=== PATIENT | male | born 1970 | race Caucasian/White ===

== ENCOUNTER 2017-02-10 02:15 | Observation (INO) | payer BC ==
[~2017-02-10] VITALS: Ht 180.3 cm; Wt 95.5 kg
[2017-02-10 03:01] LABS: EOSINOPHIL (%) 3.2 % (0-5); EOSINOPHIL COUNT 0.2 K/uL (0-0.3); HEMATOCRIT 46.7 % (38.0-50.0); IMMATURE GRANULOCYTE (%) 0.4 % (0.0-0.7); INSTRUMENT ABS NEUTROPHIL CT 2.8 K/uL; LYMPHOCYTE COUNT 1.5 K/uL (1.0-2.8); MCH 34.1 PG (29.0-34.0); MCHC 35.5 G/DL (30.0-36.0); MCV 95.9 FL (86-99); MEAN PLAT.VOLUME 9.7 uM^3 (9.0-12.4); MONOCYTE (%) 15.9 % (3-12); MONOCYTE COUNT 0.9 K/uL (0-0.8); NEUTROPHIL (%) 52.3 % (45-76); NEUTROPHIL COUNT 2.8 K/uL (1.8-6.4); PLATELET COUNT 184 K/uL (156-360); RBC DIS.WIDTH-CV 12.6 % (11.8-14.6); RBC DIS.WIDTH-SD 45.3 % (39-53); RED BLOOD COUNT 4.87 M/uL (4.00-5.50); WHITE BLOOD COUNT 5.3 K/uL (4.1-10.2)
[2017-02-10 03:15] LABS: CHLORIDE 102 mEq/L (99-109); POTASSIUM 3.8 mEq/L (3.7-5.4); SODIUM 139 mEq/L (136-147)
[2017-02-10 03:16] LABS: GLUCOSE 101 mg/dL (70-99)
[2017-02-10 03:18] LABS: ANION GAP 11 MEQ/L (2-14)
[2017-02-10 03:20] LABS: GFR ESTIMATE (CALCULATED) > 59 mL/min/
[2017-02-10 03:21] LABS: UREA NITROGEN (BUN) 12 mg/dL (9-23)
[2017-02-10 03:27] LABS: TROP-I INTERPRETATION NEGATIVE; TROPONIN-I < 0.01 ng/mL (0.0-0.30)
[2017-02-10 07:35] VITALS: BP 153/97
[2017-02-10 08:50] LABS: HDL CHOLESTEROL 46 MG/DL (Desirable>=40); LDL CHOLESTEROL 112 mg/dL (Desirable<100); NON-HDL CHOLESTEROL 134 mg/dL (Desirable<160); TOTAL CHOLESTEROL 180 mg/dL (Desirable<200); TRIGLYCERIDES 108 MG/DL (Normal: <150)
[2017-02-10 10:14] LABS: TROP-I INTERPRETATION NEGATIVE; TROPONIN-I < 0.01 ng/mL (0.0-0.30)
[2017-02-10] MEDS ORDERED: NICOTINE PATCH1 EAC1 TD (14:06)
[2017-02-10] MEDS ORDERED: LOPRESSOR25 MG PO (14:06)
[2017-02-10 15:29] LABS: TROP-I INTERPRETATION NEGATIVE; TROPONIN-I < 0.01 ng/mL (0.0-0.30)
== END 2017-02-10 15:53 | disposition home or self-care (01) ==
LOC: EME 02:15 → EDOF 04:47 → ENRESERV 04:48 → 5WEST 07:24
PROVIDERS: Emergency Medicine; Hospitalist; Nurse Practitioner Adult Health
DX: R07.9 Chest pain, unspecified (principal); F17.210 Nicotine dependence, cigarettes, uncomplicated; I10 Essential (primary) hypertension; K21.9 Gastro-esophageal reflux disease without esophagitis; K44.9 Diaphragmatic hernia without obstruction or gangrene; Z72.89 Other problems related to lifestyle; N28.1 Cyst of kidney, acquired; K80.20 Calculus of gallbladder without cholecystitis without obstruction; Z79.82 Long term (current) use of aspirin; Z80.3 Family history of malignant neoplasm of breast
CPT/HCPCS: 71010; 71275; 74177; 80048; 80061; 83735; 84484; 85025; 93005; 99202; 99281; 99285; G0378; J1650

== ENCOUNTER 2017-02-13 03:24 | Emergency (ER) | payer BC ==
[~2017-02-13] VITALS: Ht 180.3 cm; Wt 95.3 kg
[~2017-02-13 03:24] MED LIST: LOPRESSOR25 MG PO; NICOTINE PATCH1 EAC1 TD
[2017-02-13 04:29] LABS: MCH 34.1 PG (29.0-34.0); MCHC 34.8 G/DL (30.0-36.0); MEAN PLAT.VOLUME 9.5 uM^3 (9.0-12.4); PLATELET COUNT 175 K/uL (156-360); RBC DIS.WIDTH-CV 12.6 % (11.8-14.6); RBC DIS.WIDTH-SD 45.7 % (39-53); WHITE BLOOD COUNT 6.3 K/uL (4.1-10.2)
[2017-02-13 04:39] LABS: CHLORIDE 98 mEq/L (99-109); POTASSIUM 4.3 mEq/L (3.7-5.4); SODIUM 136 mEq/L (136-147)
[2017-02-13 04:49] LABS: GLUCOSE 96 mg/dL (70-99)
[2017-02-13 04:50] LABS: ANION GAP 11 MEQ/L (2-14)
[2017-02-13 04:51] LABS: TOTAL BILIRUBIN 0.8 mg/dL (0.0-1.0)
[2017-02-13 04:52] LABS: ALKALINE PHOSPHATASE 77 IU/L (3-129); GFR ESTIMATE (CALCULATED) > 59 mL/min/
[2017-02-13 04:53] LABS: UREA NITROGEN (BUN) 15 mg/dL (9-23)
[2017-02-13 04:56] LABS: LIPASE 36 U/L (1.0-51.0)
[2017-02-13] MEDS ORDERED: OMEPRAZOLE40 M1 PO (05:21)
[2017-02-13] MEDS ORDERED: ZOFRAN ODT4 MG PO (05:21)
[2017-02-13 05:34] LABS: TROP-I INTERPRETATION NEGATIVE; TROPONIN-I < 0.01 ng/mL (0.0-0.30)
[2017-02-13 05:55] VITALS: BP 123/91
== END 2017-02-13 05:55 | disposition home or self-care (01) ==
LOC: EME 03:24
PROVIDERS: Physician Assistant
DX: K80.20 Calculus of gallbladder without cholecystitis without obstruction (principal); R03.0 Elevated blood-pressure reading, without diagnosis of hypertension; Z87.891 Personal history of nicotine dependence
CPT/HCPCS: 80053; 83690; 84484; 85027; 93005; 99281; 99285